=== PATIENT | female | born 1965 | race Caucasian/White ===

== ENCOUNTER 2023-12-01 09:16 | Outpatient (CLI) | payer BC, SELFPAY ==
[2023-12-01 13:13] LABS: Basophils Percent Auto 0.7 % (0.2-1.2); Eosinophils Absolute Auto 0.1 K/mm3 (0-0.3); Eosinophils Percent Auto 1.4 % (0-4.4); Hematocrit 42.9 % (37.0-47.0); Hemoglobin 14.3 g/dL (12.0-15.0); Immature Granulocyte Absolute 0.01 K/mm3 (0.00-0.031); Immature Granulocyte Percent A 0.2 % (0-0.5); Lymphocytes Percent Auto 30.6 % (18.3-44.2); Mean Corpuscular HGB Conc 33.3 g/dl (32-36); Mean Corpuscular Hemoglobin 31.2 pg (26-34); Mean Corpuscular Volume 93.7 fl (80-100); Mean Platelet Volume 10.5 fl (7.4-10.4); Monocytes Absolute Auto 0.3 K/mm3 (0.1-0.6); Monocytes Percent Auto 6.4 % (2.6-8.5); Neutrophils Absolute Auto 2.6 K/mm3 (1.3-6.7); Neutrophils Percent Auto 60.7 % (45.5-73.1); Platelet Count Result 218 k/mm3 (150-375); Red Blood Count 4.58 M/mm3 (4.2-5.4); Red Cell Distribution Width 12.3 % (11.5-14.5); White Blood Count 4.3 K/mm3 (4.5-10.0)
[2023-12-01 13:48] LABS: Alanine Aminotransferase 21 U/L (6-35); Albumin Level 4.5 g/dL (3.5-5.1); Alkaline Phosphatase 84 U/L (38-126); Anion Gap 8 mmol/L (8-16); Aspartate Amino Transferase 33 U/L (14-36); Bilirubin,Total 0.9 mg/dL (0.2-1.3); Blood Urea Nitrogen 18 mg/dL (7-17); Calcium 9.7 mg/dL (8.4-10.2); Carbon Dioxide 28 mmol/L (22-30); Chloride 103 mmol/L (98-107); Cholesterol 197 mg/dL (0-200); Estimated Glomerular Filt Rate > 60; Glucose 89 mg/dL (65-110); HDL Direct 46 mg/dL; Potassium 4.1 mmol/L (3.4-5.0); Sodium 139 mmol/L (137-145); Triglycerides 168 mg/dL (<150)
[2023-12-01 13:58] LABS: LDL Cholesterol Direct 105 mg/dL
[2023-12-04 14:02] LABS: Vitamin D 1,25 (OH)2 Total 39 pg/mL (18-72); Vitamin D2 1,25 (OH)2 <8 pg/mL; Vitamin D3 1,25 (OH)2 39 pg/mL
== END 2023-12-01 09:17 | disposition home or self-care (01) ==
LOC: ANHGOSHLAB 09:17
PROVIDERS: PCP Nurse Practitioner Family; Visit Provider Nurse Practitioner Family
DX: Z00.00 Encounter for general adult medical examination without abnormal findings (principal); E55.9 Vitamin D deficiency, unspecified
CPT/HCPCS: 36415; 80053; 80061; 82652; 84443; 85025

== ENCOUNTER 2024-07-21 08:10 | Emergency (ER) | payer BC, SELFPAY ==
--- NOTE | 2024-07-21 08:13 | ED.EAR ---
HPI - Ear Problem General Chief complaint: Ear Stated complaint: ear ache Time Seen by Provider: 07/21/24 08:36 Source: patient and RN notes reviewed Mode of arrival: ambulatory Limitations: no limitations History of Present Illness HPI Narrative: 59-year-old female presents with concern for right earache. Reports she had cold symptoms about 2 weeks ago which mostly have resolved but she continues to have ear pain and pressure. She reports she also recently flew on an airplane which exacerbated her symptoms. MD Complaint: ear pain Related Data Home Medications Medication Instructions Recorded Confirmed calcium carbonate 600 mg-vitamin 1 tablet PO DAILY 11/28/23 07/21/24 D3 20 mcg (800 unit) tablet Allergies Allergy/AdvReac Type Severity Reaction Status Date / Time No Known Allergies Allergy Verified 07/21/24 08:19 Review of Systems Review of Systems: CONSTITUTIONAL: Denies malaise, chills, sweats, or fever. EYES: Denies visual changes, redness, or discharge. ENT: Reports resolving rhinorrhea, congestion. Denies sinus pain, and sore throat. Reports right ear pain CARDIOVASCULAR: Denies chest pain, palpitations, or edema. RESPIRATORY: Denies cough. Denies dyspnea. GASTROINTESTINAL: Denies abdominal pain, nausea, vomiting, diarrhea SKIN: Denies rash or itching. MUSCULOSKELETAL: Denies myalgia. NEUROLOGIC: Denies headache. All systems reviewed & are unremarkable except as noted in HPI and below PMFSH Surgical History Surgical History History of cardiac radiofrequency ablation (~02/2018) Family History Family History Mother Family history of diabetes mellitus in first degree relative Family history of malignant neoplasm of breast in first degree relative Social History Social History Smoking status: Never smoker Alcohol intake: never Comments At time of signature, agree with nursing past medical, surgical, social and family history. There is no relevant family history pertinent to the presenting complaint Exam Narrative: GENERAL: Well-appearing, well-nourished, and in no acute distress. HEAD: Normocephalic EYES: PERRLA, conjunctivae clear ENT: Nares clear, turbinates edematous, clear discharge. Mucous membranes moist. TM pearly troy with dull light reflex on the right, sharp on the left; no tragal tenderness. Oropharynx not erythematous without lesions. Tonsils not enlarged and without exudate, no drooling, no hoarseness, no trismus, uvula midline. NECK: Supple. No lymphadenopathy CHEST: Clear to auscultation, breath sounds equal. No wheezing, rhonchi, rales, or stridor. No respiratory distress, speaks in full sentences. HEART: Regular rate and rhythm. No murmur heard. SKIN: Warm, dry, no rash. NEURO: Alert and oriented x3. PSYCH: Normal mood and affect Course Course Emergency Course: Patient is aware of diagnosis, understands and agrees to treatment plan. Anticipatory guidance given. Patient agrees to follow-up as directed and is aware of reasons to seek care at the emergency department. Portions of this record may have been created with voice recognition software Level of Care: [facility] Visit Vital Signs Vital signs: Reviewed. Medical Decision Making MDM Narrative Medical decision making narrative: I evaluated this in the [facility] care. History is obtained from patient who is an independent historian and physical exam was performed.? Available medical records were reviewed. ? Exam findings and relevant testing show no acute concerns or changes; patient is non-toxic appearing and is in no distress. Differential diagnosis considered: Mireles virus, strep pharyngitis, allergic rhinitis, upper respiratory tract infection, sinusitis, rhinosinusitis, nasopharyngitis. viral pharyngitis, otitis media, otitis externa, o
[2024-07-21 08:24] VITALS: BP 125/90; PULSE 68; RESP 16; TEMP 35.9; O2SAT 98
== END 2024-07-21 08:57 | disposition home or self-care (01) ==
PROVIDERS: Emergency Provider Nurse Practitioner; PCP Nurse Practitioner Family
DX: H73.891 Other specified disorders of tympanic membrane, right ear (principal)
CPT/HCPCS: 99213; G0463

== ENCOUNTER 2024-12-05 09:24 | Outpatient (CLI) | payer BC, SELFPAY ==
--- OUTSIDE RECORDS SUMMARY | 2024-12-05 09:59 | XMS_ITS | Clinical Summary ---
Author Organization [facility] Address [address] [place] [id number] Care Team Providers Care Food Technologist Name Role Phone Jones Sanchez MD Primary Care Provide r Melissa Cooley MD Unavailable [phone] Allergies No known active allergies Medications calcium carbonate-vitam in D3 1,500 mg (600mg elemental) -800 unit per tablet Take 1 tablet by mouth daily Active PARoxetine (PAXIL) 30 mg tablet TAKE ONE TABLET BY MOUTH EVERY DAY IN THE MORNING 90 tablet 3 11/17/2022 Active atorvastatin (LIPITOR) 40 mg tablet Take 1 tablet (40 mg total) by mouth daily 90 tablet 3 05/09/2023 Active Active Problems Problem Noted Date Diagnosed Date Encounter for screening colonoscopy 01/07/2023 Overview (01/07/2023): Added automatically from request for surgery [id number] History of cardiac radiofrequency ablation 01/23 Depression 08/28/2018 Multiple-type hyperlipidemia 08/05/2016 Overview (02/04/2017): Mixed hyperlipidemia Resolved Problems Problem Noted Date Diagnosed Date Resolved Date Cardiomyopathy 08/05/2016 10/17/2020 Overview (02/04/2017): Cardiomyopathy Assessment & Plan (04/26/2018 12:33 PM CDT): 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 Will recheck an echocardiogram post ablation. Bradycardia 08/05/2016 10/17/2020 Overview (02/04/2017): Bradycardia Ventricular premature beats 06/25/2015 10/17/2020 Overview (02/04/2017): PVC (premature ventricular contraction) Assessment & Plan (04/26/2018 12:33 PM CDT): Post ablation of her PVCs on 03/23/2018. She has been doing well since. She denies any recent palpitations. Her EKG today does not demonstrate any evidence of ventricular ectopy. At this time she states she would prefer to follow up with Dr. Cooley which is reasonable. We can see the patient if she has any further issues or problems. Hypercholesterolemia 06/25/2015 019 Overview (02/04/2017): Hypercholesterolemia Ventricular tachycardia 06/25/201509/30 Overview (02/04/2017): Ventricular tachycardia Immunizations Name Administration Dates Next Due Influenza, Unspecified 07/31/2022,2020,07/31/2020,2017,07/31/2017 Pfizer SARS-CoV-2 Monovalent Vaccination (12+ Yrs) PURPLE 11/03/2020,10/17/2020 Tdap 10/02/2014 ZOSTER Recombinant 07/11/2023,05/09/2023 Surgical History Surgery Date Site/Laterality Comments CARDIAC ELECTROPHYSIOLOGY MA PPING AND ABLATION 10/31/2017 - 10/30/2018 COLONOSCOPY 01/19/2023 1st screening Medical History Medical History Date Comments Arrhythmia Hyperlipidemia PVC's (premature ventricular contractions) Ventricular tachycardia (HCC) Cardiomyopathy (HCC) Bradycardia 08/05/2016 Bradycardia Ventricular premature beats 06/25/2015 PVC (premature ventricular contraction) Family History Medical History Relation Name Comments Other Father Unknown; Breast cancer Mother Cancer, breast ; Diabetes type II Mother Diabetes me llitus type 2; Other Other No family histo ry of Cardiovascular disease; Colon cancer Paternal Grandfather Cancer, colon; Colon cancer Paternal Grandmother Cancer, colon; Endometrial cancer Neg Hx Ovarian cancer Neg Hx Thyroid cancer Neg Hx Relation Name Status Comments Father Mother Other Paternal Grandfather Paternal Grandmother Social History Tobacco Use Types Packs/Day Years Used Date Smoking Tobacco: Never Smokeless Tobacco: Never Tobacco Cessation:Counseling Given: Not Answered Alcohol Use Standard Drinks/Week Comments Yes 0 (1 standard drink = 0.6 oz pur e alcohol) occasionally AUDIT-C Answer Date Recorded Q1: How often do you have a drink containing alc ohol? 2-4 times a month 01/19/2023 Q2: How many drinks containi ng alcohol do you have on a typical day when you are drinking? 1 or 2 01/19/2023 Q3: How often do you have si x or more drinks on one occasion? Never 01/19/2023 PHQ-2 Answer Date Recorded PHQ-2 Total Score (If total score is 3 or more points, staff should administer the PHQ-9) 0 08/10/2022 Personal Safety Answer Date Recorded Have you ever been in or are you currently in a harmful physical or emotional relationship or is someone making you feel afraid or unsafe? 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 Not on file Not on file Not on file Obstetrics History Para Term AB IAB SAB Ectopic Multiple Livin g Live Births 3 2 2 1 1 1 2 Date Outcome GA Total Labor Labor/2nd/3rd Weight Sex Type Anes PTL Alexandrea A1 A5 Name Clin SAB SAB 1990 Term F Vag-S pont 1993 Term M Vag-S pont Living Comments Daughter in 12/2017, (MV A?). Tearful when OB history reviewed 12/2020. Last Filed Vital Signs Vital Sign Reading Time Taken Comments Blood Pressure 122/72 05/09/2023 9:29 AM CDT Pulse 71 05/09/2023 9:29 AM CDT Temperature 36.8 ??C (98.2 ??F) 03/24/2018 4:10 AM CD T Respiratory Rate 18 01/19/2023 9:20 AM CDT Oxygen Saturation 99% 01/19/2023 9:20 AM CDT Inhaled Oxygen Concentration - - Weight 87.1 kg (192 lb 1.6 oz) 05/09/2023 9:29 A M CDT Height 177.8 cm (5' 10 ) 05/09/2023 9:29 AM CDT Body Mass Index 27.56 05/09/2023 9:29 AM CDT Plan of Treatment Health Maintenance Due Date Last Done Comments Hepatitis B Screening 1981 Cervical Cancer Screening 01/26/2022 01/26/2021 Depression Screening 08/10/2023 08/10/2022, 05/07/2022, 10/17/2020, Additional history exists Regular Well Visit/Exam 18-64 05/09/2024 05/09/2023, 05/07/2022, 01/26/2021, Additional history exists Covid-19 Vaccine ( season) 2024 10/14/2021, 11/03/2020, 10/17/2020 Influenza Vaccine (#1) 2024 2, 07/31/2021, 07/31/2020, Additional history exists DTaP/Tdap/Td Vaccine (2 - Td or Tdap) 10/02/2024 10/02/2014 Breast Cancer Screening-Mammogram 11/19/2024 11/19/2022, 01/15/2021, 09/14/2017, Additional history exists Colon Cancer Screening-Colonoscopy 01/20/2028 01/19/2023 Hepatitis C Screening Completed 11/18/2020 Colon Cancer Screening-CT Colonography Discontinued 01/19/2023 Colon Cancer Screening-DNA Stool Discontinued 01/19/2023 Colon Cancer Screening-FIT Discontinued 01/19/2023 Colon Cancer Screening-Sigmoidoscopy Discontinued 01/19/2023 Zoster Vaccine Completed 07/11/2023, 05/09/2023 Pneumococcal vaccine <65 Aged Out No longer eligible based on patient's age to complete this topic Procedures Procedure Name Priority Date/Time Associated Diagnosis Comments COLONOSCOPY 01/19/2023 8:17 AM CDT SCREENING MAMMOGRAM BILATERAL W GERALD Schedule Routine, Read Routine (OP Routine) 11/19/2022 11:43 AM WOUND CARE NURSE Screening mammogram, encounter for PAP WITH REFLEX TO HIGH RISK HPV Routine 01/26/2021 9:47 AM CDT HEPATITIS C ANTIBODY Routine 11/18/2020 9:48 AM WOUND CARE NURSE Need for hepatitis C screening test from Last 3 Months or Most Recently Relevant to Health Maintenance Results * COLONOSCOPY (01/19/2023 8:17 AM CDT) Anatomical Region Laterality Modality Other Narrative Procedure Note Garcia Jorge MD - 01/19/2023 8:17 AM CDT [facility] Patient Name: Eden Felipe Procedure Date: 01/19/2023 8:17 AM Date of : 1965 Admit Type: Outpatient Age: 57 Gender: Female Note Status: Finalized Attending MD: Garcia Jorge M.D. Procedure Date: 01/19/2023 Procedure: Colonoscopy Indications: Screening for colorectal malignant neoplasm, Thisis the patient's first colonoscopy Providers: Garcia Jorge M.D., Niya Trujillo (AnesthesiaStaff), Shira Armstrong RN, Dana Connolly, Potline Monitor Referring MD: Jones Sanchez M.D. Medicines: Monitored Anesthesia Care Complications: No immediate complications. Estimated Blood Loss: Estimated blood loss: none. Procedure: Pre-Anesthesia Assessment: - Airway Examination: normal oropharyngeal airwayand neck mobility. - Respiratory Examination: clear to auscultation. - ASA Grade Assessment: II - A patient with mild systemic disease. - After reviewing the risks and benefits, thepatient was deemed in satisfactory condition to undergo the procedure. - The risks and benefits of the procedure and the sedation options and risks were discussed with the patient. All questions were answered and informed consent was obtained. After I obtained informed consent, the scope was passed under direct vision. Throughout theprocedure, the patient's blood pressure, pulse, and oxygen saturations were monitored continuously. The scopewas passed under direct vision. The Colonoscope was introduced through the anus and advanced to the the cecum, identified by the appendiceal orifice, ileocecal valve and palpation. The colonoscopy was performed with ease. The patient tolerated the procedure well. The quality of the bowelpreparation was good. The quality of the bowel preparation was evaluated using the BBPS (Harmon Bowel Preparation Scale) with scores of: Right Colon = 3, Transverse Colon = 3 and Left Colon = 3 (entire mucosa seenwell with no residual staining, small fragments of stoolor opaque liquid). The total BBPS score equals 9. The quality of the bowel preparation was evaluatedusing the BBPS (Harmon Bowel Preparation Scale) withscores of: Right Colon = 3 (entire mucosa seen well withno residual staining, small fragments of stool oropaque liquid), Transverse Colon = 2 (minor amount of residual staining, small fragments of stool and/or opaque liquid, but mucosa seen well) and Left Colon= 3 (entire mucosa seen well with no residualstaining, small fragments of stool or opaque liquid). Thetotal BBPS score equals 8. The quality of the bowel preparation was good. The bowel preparation usedwas SUPREP via split dose instruction. Bowel prep was administered using a split dose. Findings: The perianal and digital rectal examinations were normal. A 7 mm polyp was found in the transverse colon. The polyp wassessile. The polyp was removed with a cold snare. Resection and retrieval were complete. Estimated blood loss: none. A 5 mm polyp was found in the transverse colon. The polyp wassessile. The polyp was removed with a jumbo cold forceps. Resection andretrieval were complete. Estimated blood loss: none. A few medium-mouthed diverticula were found in the sigmoid colon. The retroflexed view of the distal rectum and anal verge was normaland showed no anal or rectal abnormalities. Impression: - One 7 mm polyp in the transverse colon, removedwith a cold snare. Resected and retrieved. - One 5 mm polyp in the transverse colon, removedwith a jumbo cold forceps. Resected and retrieved. - Diverticulosis in the sigmoid colon. - The distal rectum and anal verge are normal on retroflexion view. Recommendation: - Discharge patient to home (ambulatory). - Await pathology results. - Repeat colonoscopy in 5 years for surveillance. - No aspirin, ibuprofen, naproxen, or other non-steroidal anti-inflammatory drugs for 2 weeks after polyp removal. Procedure Code(s): --- Professional --- 61258, Colonoscopy, flexible; with removal of tumor(s), polyp(s), or other lesion(s) by snare technique 41088, 59, Colonoscopy, flexible; with biopsy,single or multiple Diagnosis Code(s): --- Professional --- Z12.11, Encounter for screening for malignantneoplasm of colon D12.3, Benign neoplasm of transverse colon (hepatic flexure or splenic flexure) K57.30, Diverticulosis of large intestine without perforation or abscess without bleeding CPT copyright 2020 [employer]. All rights reserved. The codes documented in this report are preliminary and upon fermentation operator reviewmay be revised to meet current compliance requirements. Electronically signed by Garcia Jorge MD Garcia Jorge M.D. 01/19/2023 8:48:24 AM Number of Addenda: 0 Note Initiated On: 01/19/2023 8:17 AM us Garcia Jorge MD ENDOSCOPY PROCEDURES Final Resul t * Screening Mammogram Bilateral W Gerald (11/19/2022 11:43 AM WOUND CARE NURSE) Anatomical Region Laterality Modality Breast Bilateral Mammography 11/19/2022 1:10 PM WOUND CARE NURSE Impressions 11/19/2022 1:10 PM WOUND CARE NURSE No evidence of malignancy in either breast. FINAL ASSESSMENT: BI-RADS Category 1: Negative. RECOMMENDATION: Recommend return for annual screening mammogram in 12 months. ?? Electronically signed by: Mary Nolan M.D. Narrative 11/19/2022 1:10 PM WOUND CARE NURSE EXAMINATION: BILATERAL SCREENING MAMMOGRAM COMPARISON: Multiple prior studies, most recently 01/15/2021 and dating back to 09/14/2013. TECHNIQUE: Full-field 2D and digital breast tomosynthesis (DBT) images were obtained. CAD was utilized. BREAST PARENCHYMAL COMPOSITION: ??The breasts are heterogenously dense, which may obscure small masses. FINDINGS: There is no suspicious mass, calcification, or distortion in either breast. There has been no significant interval change from the prior study. us Self Screening Mammogram IMG MAMMO PROCEDURES Fi nal Result * Pap with reflex to High Risk HPV (01/26/2021 9:47 AM CDT) Pap test 01/26/2021 9:47 AM CDT 01/26/2021 9:47 AM CDT Narrative 01/28/2021 12:57 PM CDT [facility] Department of Pathology [address] [place] [id number] Final Report with Addendum Patient Name: ??EDEN FELIPE Address: ??[address] [place] [address] , ?? [place], [place] [address] Gender: ??F : ??1965 (Age: 55) Service: ??Laboratory Location: ??Lab Hospital #: ??[id number] Patient Type: ?? Ref Lab Taken: ??01/26/2021 Received: ??01/26/2021 Accessioned:: ??01/27/2021 Reported: ??01/28/2021 Physician(s): Jyothi Packer Diagnosis: Source of Specimen: ? Imaged Thinprep Pap Test plus HPV - Volcanologist Cytologic Material Specimen Adequacy: ?- Specimen satisfactory for interpretation; indeterminate endocervical component due to marked ?atrophy General Category: ?- Negative for intraepithelial lesion or malignancy ?? PRECIOUS Parr(ASCP) Report Electronically Reviewed and Signed Out By ??PRECIOUS Parr(ASCP) ??01/28/2021 12:57:42 ??Addenda: HPV Test Interpretation NEGATIVE for types 16, 18, 31, 33, 35, 39, 45, 51, 52, 56, 58, 59, 66 and 68. Test performed utilizing Gen-Booktrope Aptima assay. ?? PRECIOUS Medina(ASCP) ??Report Electronically Reviewed and Signed Out By ??PRECIOUS Parr(ASCP) ??01/27/2021 14:47:07 ? Specimen(s) Received: A: Imaged Thinprep Pap Test plus HPV - Volcanologist Cytologic Material Clinical History: Last Menstrual Period: 2013 Menstrual History: Post-menopausal The Pap test is a screening test used to aid in the detection of cervical cancer and its precursors. ??It should not be the sole means by which malignant and premalignant lesions are diagnosed. ??Both false negative and false positive results may occur. ?? It also has poor sensitivity for the detection of endometrial lesions and should not be used to evaluate suspected endometrial abnormalities. ??For these reasons it is most important to obtain Pap tests at regular intervals. The performance characteristics of some immunohistochemical stains, fluorescence in-situ hybridization tests and immunophenotyping by flow cytometry cited in this report (if any) were determined by the Surgical Pathology Department at [facility] as part of an ongoing quality nurse program and in compliance with federally mandated regulations drawn from the Clinical Laboratory Improvement Act of 1988 (CLIA '88). ??Some of these tests rely on the use of analyte specific reagents and are subject to specific labeling requirements by the US Food and Drug Administration. ??Such diagnostic tests may only be performed in a facility that is certified by the Department of Health and Human Services as a high complexity laboratory under CLIA '88. The FDA has determined that such clearance or approval is not necessary. ??This test is used for clinical purposes. ??It should not be regarded as investigational or for research. ??Nevertheless, federal rules concerning the medical use of analyte specific reagents require that the following disclaimer be attached to the report: This test was developed and its performance characteristics determined by the Surgical Pathology Department [facility]. ??It has not been cleared or approved by the U. S. Food and Drug Administration. Jyothi Packer MD LAB CYTOLOGY ORDERABLES Final Result * Hepatitis C antibody (11/18/2020 9:48 AM WOUND CARE NURSE) Hep C Ab Nonreactive Nonreactive [facility] Comment: Interpretive Data Nonreactive: Antibodies to HCV not detected. Does NOT exclude the possibility of recent exposure to HCV. Equivocal: Equivocal for HCV antibodies. Supplemental molecular testing will be automatically performed to determine infection status in accordance with current CDC screening recommendations. ?? Reactive: Positive for HCV antibodies. ??This may represent current or past HCV infection. Supplemental molecular testing will be automatically performed to determine ??current infection status in accordance with current CDC screening recommendations. Interpretive data was last revised on 2020. Blood specimen (specimen) 11/18/2020 9:48 AM WOUND CARE NURSE 11/18/2020 9:48 AM WOUND CARE NURSE Jones Sanchez MD LAB MICROBIOLOGY - NERAL ORDERABLES Final Result [facility] [id number] Department [place] [address] from Last 3 Months or Most Recently Relevant to Health Maintenance Insurance [facility] [place] [address] Care Teams Food Technologist Relationship Specialty Start Date End Date Jones Sanchez MD PCP - General Family Medicine 04/27/17 Melissa Cooley MD Consulting Physician Cardiology 04/25/19
--- OUTSIDE RECORDS SUMMARY | 2024-12-05 09:59 | XMS_ITS | Encounter Summary ---
Author Organization [facility] Address [address] [place] [address] Care Team Providers Care Solderer Assembly Repair Name Role Phone Chanel Serra MD Primary Care Provider Jones Sanchez MD Primary Care Provide r Melissa Cooley MD Unavailable [phone] Encounter Details Date Type Department Care Team (Late st Contact Info) Description 02/02/2017 Orders Only [facility] ProviderJena MD [address] [place], [place] [id number] Social History Tobacco Use Types Packs/Day Years Used Date Smoking Tobacco: Never Alcohol Use Standard Drinks/Week Comments Yes 0 (1 standard drink = 0.6 oz pur e alcohol) Comments Unknown Sex and Gender Information Value Date Recorded Sex Assigned at Not on file Legal Sex Female 6:48 PM MILLINERY BLOCKER Gender Identity Not on file Sexual Orientation Not on file documented as of this encounter Plan of Treatment Not on file documented as of this encounter Procedures Procedure Name Priority Date/Time Associated Diagnosis Comments CARDIOLOGY REPORT 02/02/2017 CARDIOLOGY REPORT 02/02/2017 documented in this encounter Results * CARDIOLOGY REPORT (02/02/2017) Anatomical Region Laterality Modality Other Narrative 02/02/2017 Ordered by an unspecified provider. Historical Provider [facility] TOMLINSON Final Result * CARDIOLOGY REPORT (02/02/2017) Anatomical Region Laterality Modality Other Narrative 02/02/2017 Ordered by an unspecified provider. us Historical Provider [facility] LID[facility] TOMLINSON Final Result documented in this encounter Visit Diagnoses Not on filedocumented in this encounter Additional Health Concerns Infection Onset Date Last Indicated Resolved Time Exposure, COVID-19 Comment:Added automatically based on COVID19 lab answers indicating exposure risk 11/10/2021 11/10/2021 11/10/2021 2:[address] COVID: Suspected 11/10/2021 11/10/2021 11/10/2021 2:00 PM MILLINERY BLOCKER COVID19 11/10/2021 11/10/2021 11/20/2021 3:05 AM MILLINERY BLOCKER COVID: Recovered Comment:Added based on recent COVID infection. 11/20/2021 02/04/2022 03/20/2022 3:05 AM C DT documented as of this encounter Care Teams Solderer Assembly Repair Relationship Specialty [place] [id number] [place] [address] PCP - General 01/28/17 04/26/17 [place] [id number] [place] [address] PCP - General Family Medicine 04/27/17 [place] [id number] [place] [address] [place] [phone] Consulting Physician Cardiology 04/25/19 documented as of this encounter
--- OUTSIDE RECORDS SUMMARY | 2024-12-05 09:59 | XMS_ITS | Referral Summary ---
Author Organization [facility] Address [address] [place] [id number] Care Team Providers Care Patient Service Associate Name Role Phone Jones Sanchez MD Primary Care Provide r Melissa Cooley MD Unavailable [phone] Allergies No known active allergies Medications calcium [...] (01/07/2023): Added automatically from request for surgery [id number] History of cardiac radiofrequency ablation 01/23 Depression [...] PURPLE 11/03/2020,10/17/2020 Tdap 10/02/2014 ZOSTER Recombinant 07/11/2023,05/09/2023 Social History Tobacco Use Types Packs/Day Years [...] on file Legal Sex Female 6:48 PM CAP AND HAT PRODUCTION SUPERVISOR Gender Identity Not on file Sexual Orientation Not on file 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 Not on file Not on file Not on file Last Filed Vital Signs Vital Sign Reading [...] 05/09/2023 9:29 AM CDT Plan of Treatment Not on file Procedures Procedure Name Priority Date/Time Associated Diagnosis Comments COLONOSCOPY 01/19/2023 8:17 AM CDT SCREENING MAMMOGRAM BILATERAL W GERALD Schedule Routine, Read Routine (OP Routine) 11/19/2022 11:43 AM CAP AND HAT PRODUCTION SUPERVISOR Screening mammogram, encounter for PAP WITH REFLEX TO HIGH RISK HPV Routine 01/26/2021 9:47 AM CDT HEPATITIS C ANTIBODY Routine 11/18/2020 9:48 AM CAP AND HAT PRODUCTION SUPERVISOR Need for hepatitis C screening test from Last 3 Months or Most Recently Relevant to Health Maintenance Results * COLONOSCOPY (01/19/2023 8:17 AM CDT) Anatomical Region Laterality Modality Other Narrative Procedure Note Garcia Jorge MD - 01/19/2023 8:17 AM CDT [facility] Endoscopy Lab Patient Name: Eden Felipe Procedure Date: 01/19/2023 8:17 AM Date of : 1965 Admit Type: Outpatient Age: 57 Gender: Female Note Status: Finalized Attending MD: Garcia Jorge M.D. Procedure Date: 01/19/2023 Procedure: Colonoscopy Indications: Screening for colorectal malignant neoplasm, Thisis the patient's first colonoscopy Providers: Garcia Jorge M.D., Niya Trujillo (AnesthesiaStaff), Shira Armstrong, DENNIS, Dana Connolly, Clinical Product Manager Referring MD: Jones Sanchez M.D. Medicines: Monitored [...] bowel preparation was evaluated using the BBPS ([place] Bowel Preparation Scale) with scores of: Right Colon = 3, Transverse Colon = 3 and Left Colon = 3 (entire mucosa seenwell with no residual staining, small fragments of stoolor opaque liquid). The total BBPS score equals 9. The quality of the bowel preparation was evaluatedusing the BBPS ([place] Bowel Preparation Scale) withscores of: Right Colon [...] polyp removal. Procedure Code(s): --- Professional --- 29380, Colonoscopy, flexible; with removal of tumor(s), polyp(s), or other lesion(s) by snare technique 90745, 59, Colonoscopy, flexible; with biopsy,single or multiple Diagnosis Code(s): --- Professional --- Z12.11, Encounter for screening for malignantneoplasm of colon D12.3, Benign neoplasm of transverse colon (hepatic flexure or splenic flexure) K57.30, Diverticulosis of large intestine without perforation or abscess without bleeding CPT copyright 2020 [place] [employer]. All rights reserved. The codes documented in this report are preliminary and upon hospital ward clerk reviewmay be revised to meet current compliance requirements. Electronically signed by Garcia Jorge MD Garcia Jorge M.D. 01/19/2023 8:48:24 AM Number of Addenda: 0 Note Initiated On: 01/19/2023 8:17 AM us Garcia Jorge MD ENDOSCOPY PROCEDURES Final Resul t * Screening Mammogram Bilateral W Gerald (11/19/2022 11:43 AM CAP AND HAT PRODUCTION SUPERVISOR) Anatomical Region Laterality Modality Breast Bilateral Mammography 11/19/2022 1:10 PM CAP AND HAT PRODUCTION SUPERVISOR Impressions 11/19/2022 1:10 PM CAP AND HAT PRODUCTION SUPERVISOR No evidence of malignancy in either breast. FINAL ASSESSMENT: BI-RADS Category 1: Negative. RECOMMENDATION: Recommend return for annual screening mammogram in 12 months. ?? Electronically signed by: Mary Nolan M.D. Narrative 11/19/2022 1:10 PM CAP AND HAT PRODUCTION SUPERVISOR EXAMINATION: BILATERAL SCREENING MAMMOGRAM COMPARISON: Multiple prior [...] 12:57 PM CDT [facility] Department of Pathology [address] [place] [id number] Final Report with Addendum Patient Name: ??EDEN FELIPE Address: ??[address] [place] [address] , ?? [place], [place] ?? Gender: ??F : ??1965 (Age: 55) Service: ??Laboratory Location: ??Lab Hospital #: ??[id number] Patient Type: ?? Ref Lab Taken: ??01/26/2021 Received: ??01/26/2021 Accessioned:: ??01/27/2021 Reported: ??01/28/2021 Physician(s): Jyothi Packer Diagnosis: Source of Specimen: ? Imaged Thinprep Pap Test plus HPV - Hospital Pharmacist Cytologic Material Specimen Adequacy: ?- Specimen satisfactory [...] 59, 66 and 68. Test performed utilizing Gen-Probe Aptima assay. ?? PRECIOUS Medina(ASCP) ??Report Electronically Reviewed and Signed Out By ??PRECIOUS Parr(ASCP) ??01/27/2021 14:47:07 ? Specimen(s) Received: A: Imaged Thinprep Pap Test plus HPV - Hospital Pharmacist Cytologic Material Clinical History: Last Menstrual Period: [...] determined by the Surgical Pathology Department at [facility] as part of an ongoing quality measurement specialist program and in compliance with federally mandated [...] characteristics determined by the Surgical Pathology Department [facility]. ??It has not been cleared or approved by the U. S. Food and Drug Administration. Jyothi Packer MD LAB CYTOLOGY ORDERABLES Final Result * Hepatitis C antibody (11/18/2020 9:48 AM CAP AND HAT PRODUCTION SUPERVISOR) Hep C Ab Nonreactive Nonreactive [facility] [...] 2020. Blood specimen (specimen) 11/18/2020 9:48 AM CAP AND HAT PRODUCTION SUPERVISOR 11/18/2020 9:48 AM CAP AND HAT PRODUCTION SUPERVISOR Jones Sanchez MD LAB MICROBIOLOGY - NERAL ORDERABLES Final Result [facility] [id number] Department [place] [address] from Last 3 Months or Most Recently Relevant to [place] [address] [facility] [employer] Address: [facility] [address] [place] [address] [employer] [facility] [employer] Address: [facility] [address] [place] [address] Care Teams Patient Service Associate Relationship Specialty Start Date End Date Jones Sanchez MD PCP - General Family Medicine 04/27/17 Melissa Cooley MD Consulting Physician Cardiology 04/25/19
[2024-12-05 14:07] LABS: Basophils Percent Auto 0.5 % (0.2-1.2); Eosinophils Absolute Auto 0.1 K/mm3 (0-0.3); Eosinophils Percent Auto 1.6 % (0-4.4); Hematocrit 42.2 % (37.0-47.0); Hemoglobin 14.1 g/dL (12.0-15.0); Immature Granulocyte Absolute 0.02 K/mm3 (0.00-0.031); Immature Granulocyte Percent A 0.5 % (0-0.5); Lymphocytes Absolute Auto 1.13 K/mm3 (0.9-3.2); Lymphocytes Percent Auto 30.7 % (18.3-44.2); Mean Corpuscular HGB Conc 33.4 g/dl (32-36); Mean Corpuscular Hemoglobin 30.9 pg (26-34); Mean Corpuscular Volume 92.5 fl (80-100); Monocytes Absolute Auto 0.3 K/mm3 (0.1-0.6); Monocytes Percent Auto 7.3 % (2.6-8.5); Neutrophils Absolute Auto 2.2 K/mm3 (1.3-6.7); Neutrophils Percent Auto 59.4 % (45.5-73.1); Platelet Count Result 194 k/mm3 (150-375); Red Blood Count 4.56 M/mm3 (4.2-5.4); Red Cell Distribution Width 12.1 % (11.5-14.5); White Blood Count 3.7 K/mm3 (4.5-10.0)
[2024-12-05 16:37] LABS: Alanine Aminotransferase 21 U/L (6-35); Albumin Level 4.5 g/dL (3.5-5.1); Alkaline Phosphatase 88 U/L (38-126); Anion Gap 11 mmol/L (4-12); Aspartate Amino Transferase 37 U/L (14-36); Bilirubin,Total 0.9 mg/dL (0.2-1.3); Blood Urea Nitrogen 16 mg/dL (7-17); Calcium 9.9 mg/dL (8.4-10.2); Carbon Dioxide 26 mmol/L (22-30); Chloride 103 mmol/L (98-107); Cholesterol 204 mg/dL (0-200); Estimated Glomerular Filt Rate > 60; Glucose 97 mg/dL (65-110); HDL Direct 41 mg/dL; Potassium 4.9 mmol/L (3.4-5.0); Sodium 140 mmol/L (137-145); Triglycerides 137 mg/dL (<150)
[2024-12-05 16:42] LABS: Vitamin D 25 Hydroxy 21.2 ng/mL
[2024-12-05 16:48] LABS: LDL Cholesterol Direct 117 mg/dL
[2024-12-05 16:56] LABS: Thyroid Stimulating Hormone Reflex 0.782 uIU/mL (0.465-4.68)
== END 2024-12-05 09:25 | disposition home or self-care (01) ==
LOC: ANHGOSHLAB 09:25
PROVIDERS: PCP Nurse Practitioner Family; Visit Provider Nurse Practitioner Family
DX: Z00.00 Encounter for general adult medical examination without abnormal findings (principal); Z13.29 Encounter for screening for other suspected endocrine disorder; I10 Essential (primary) hypertension; E55.9 Vitamin D deficiency, unspecified; E78.5 Hyperlipidemia, unspecified
CPT/HCPCS: 36415; 80053; 80061; 82306; 84443; 85025

== ENCOUNTER 2025-10-18 10:30 | Outpatient (CLI) | payer BC, SELFPAY ==
--- OUTSIDE RECORDS SUMMARY | 2025-10-18 11:02 | XMS_ITS | Encounter Summary ---
Author Organization [facility] Address [address] [place] [address] Care Team Providers Care Stick Roller Name Role Phone Chanel Serra MD Primary Care Provider Jones Owusu MD Primary Care Provide r Melissa Cooley MD Unavailable [phone] Jennifer Whyte PROPELLER MECHANIC Primary Care Provider [phone] Niya Morejon PROPELLER MECHANIC Primary Care Provider [phone] Encounter Details Date Type Department Care Team (Late st Contact Info) Description 02/02/2017 Orders Only [facility] ProviderJena MD [address] [place] [address] Social History Tobacco Use Types Packs/Day Years Used Date Smoking Tobacco: Never Alcohol Use Standard Drinks/Week Comments Yes 0 (1 standard drink = 0.6 oz pur e alcohol) Comments Unknown Sex and Gender Information Value Date Recorded Sex Assigned at Not on file Legal Sex Female 6:48 PM LIFE CLAIMS EXAMINER Gender Identity Not on file Sexual Orientation Not on file documented as of this encounter Plan of Treatment Not on file documented as of this encounter Procedures Procedure Name Priority Date/Time Associated Diagnosis Comments CARDIOLOGY REPORT 02/02/2017 CARDIOLOGY REPORT 02/02/2017 documented in this encounter Results * CARDIOLOGY REPORT (02/02/2017) Anatomical Region Laterality Modality Other Narrative 02/02/2017 Ordered by an unspecified provider. Historical Provider MD CV CARDIAC SERVICES PROCE BUSHRA Final Result * CARDIOLOGY REPORT (02/02/2017) Anatomical Region Laterality Modality Other Narrative 02/02/2017 Ordered by an unspecified provider. Historical Provider CV CARDIAC SERVICES PROCE DURMONSERRAT Final Result documented in this encounter Visit Diagnoses Not on filedocumented in this encounter Additional Health Concerns Infection Onset Date Last Indicated Resolved Time Exposure, COVID-19 Comment:Added automatically based on COVID19 lab answers indicating exposure risk 11/10/2021 11/10/2021 11/10/2021 2:[address] COVID: Suspected 11/10/2021 11/10/2021 11/10/2021 2:00 PM LIFE CLAIMS EXAMINER COVID19 11/10/2021 11/10/2021 11/20/2021 3:05 AM LIFE CLAIMS EXAMINER COVID: Recovered Comment:Added based on recent COVID infection. 11/20/2021 02/04/2022 03/20/2022 3:05 AM C DT documented as of this encounter Care Teams Stick Roller Relationship Specialty Start Date End Date Chanel Serra MD PCP - General 01/28/17 04/26/17 Jones Sanchez MD PCP - General Family Medicine 04/27/17 02/13/25 Jennifer Whyte NP [address] [place] [address] PCP - General Family Medicine 02/14/25 03/14/25 Niya Morejon NP [address] [place] [address] PCP - General Nurse Practitioner 03/15/25 Melissa Cooley MD Consulting Physician Cardiology 04/25/19 documented as of this encounter
--- OUTSIDE RECORDS SUMMARY | 2025-10-18 11:02 | XMS_ITS | Clinical Summary ---
Author Organization [facility] Address [address] [place] [id number] Care Team Providers Care Track Manager Name Role Phone Melissa Cooley MD Unavailable [phone] Niya Morejon NP Primary Care Provider [phone] Allergies No known active allergies Medications calcium [...] (01/07/2023): Added automatically from request for surgery [id number] History of cardiac radiofrequency ablation 01/23 Depression [...] tachycardia 06/25/201509/30 Overview (02/04/2017): Ventricular tachycardia Immunizations Immunization Administration Dates Next Due Influenza, Unspecified 07/31/2022,2020,07/31/2020,2017,07/31/2017 Pfizer SARS-CoV-2 Monovalent Vaccination (12+ Yrs) PURPLE 11/03/2020,10/17/2020 Tdap 10/02/2014 ZOSTER Recombinant 07/11/2023,05/09/2023 Surgical History Surgery Date Site/Laterality Comments CARDIAC ELECTROPHYSIOLOGY MA PPING AND ABLATION 10/31/2017 - 10/30/2018 COLONOSCOPY 01/19/2023 1st screening Medical History Medical History Date Comments Arrhythmia Hyperlipidemia PVC's (premature ventricular contractions) Ventricular tachycardia (HCC) Cardiomyopathy Bradycardia 08/05/2016 Bradycardia Ventricular premature beats 06/25/2015 [...] on file Legal Sex Female 6:48 PM OUTREACH COUNSELOR Gender Identity Not on file Sexual Orientation Not on file 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 Not on file [...] 71 05/09/2023 9:29 AM CDT Temperature 36.8 C (98.2 F) 03/24/2018 4:10 AM CDT Respiratory Rate 18 01/19/2023 9:20 AM CDT Oxygen Saturation 99% 01/19/2023 9:20 AM CDT Inhaled Oxygen Concentration - - Weight 87.1 kg (192 lb 1.6 oz) 05/09/2023 9:29 A M CDT Height 177.8 cm (5' 10) 05/09/2023 9:29 AM CDT Body Mass Index 27.56 05/09/2023 9:29 AM CDT Plan of Treatment Health Maintenance Due Date Last Done Comments Hepatitis B Screening 1981 Cervical Cancer Screening 01/26/2022 01/26/2021 Depression Screening 08/10/2023 08/10/2022, 05/07/2022, 10/17/2020, Additional history exists Regular Well Visit/Exam 18-64 05/09/2024 05/09/2023, 05/07/2022, 01/26/2021, Additional history exists DTaP/Tdap/Td Vaccine (2 - Td or Tdap) 10/02/2024 10/02/2014 Covid-19 Vaccine ( season) 2025 10/14/2021, 11/03/2020, 10/17/2020 Influenza Vaccine (#1) 2025 , 07/31/2022, 07/31/2021, Additional history exists Breast Cancer Screening-Mammogram 03/12/2027 03/12/2025, 11/19/2022, 01/15/2021, Additional history exists Colon Cancer Screening-Colonoscopy 01/20/2028 [...] Procedure Name Priority Date/Time Associated Diagnosis Comments SCREENING MAMMOGRAM BILATERAL W GERALD Schedule Routine, Read Routine (OP Routine) 03/12/2025 11:41 AM CDT Screening mammogram, encounter for COLONOSCOPY 01/19/2023 8:17 AM CDT PAP WITH REFLEX TO HIGH RISK HPV Routine 01/26/2021 9:47 AM CDT HEPATITIS C ANTIBODY Routine 11/18/2020 9:48 AM OUTREACH COUNSELOR Need for hepatitis C screening test from Last 3 Months or Most Recently Relevant to Health Maintenance Results * Screening Mammogram Bilateral W Gerald (03/12/2025 11:41 AM CDT) Anatomical Region Laterality Modality Breast Bilateral Mammography Impressions 03/12/2025 3:56 PM CDT Left 1) Asymmetry: Left breast asymmetry in the central region in the posterior depth. Assessment: 0 - Incomplete. Diagnostic mammogram with possible ultrasound is recommended. Right No evidence of malignancy. OVERALL BI-RADS FINAL ASSESSMENT: 0 - Incomplete: Needs Additional Imaging Evaluation RECOMMENDATIONS: Recommend bilateral diagnostic mammogram with possible ultrasound. Narrative 03/12/2025 3:56 PM CDT EXAMINATION: Screening Mammogram Bilateral W Gerald: 03/12/2025 COMPARISON: Relevant prior studies available at the time of interpretation were reviewed. TECHNIQUE: Mammography was performed with 2D and digital breast tomosynthesis (DBT) images. CAD was utilized. BREAST PARENCHYMAL COMPOSITION: The breasts are heterogeneously dense, which may obscure small masses. FINDINGS: Left 1) Asymmetry: There is an asymmetry seen in the central region of the left breast in the posterior depth on the CC view. This finding needs additional imaging evaluation. Right There is no suspicious mass, calcification, or architectural distortion. us Self Screening Mammogram IMG MAMMO PROCEDURES Fi nal Result * COLONOSCOPY (01/19/2023 8:17 AM CDT) Anatomical Region Laterality Modality Other Narrative Procedure Note Garcia Jorge MD - 01/19/2023 8:17 AM CDT [facility] Endoscopy Lab Patient Name: Eden Felipe Procedure Date: 01/19/2023 8:17 AM Date of : 1965 Admit Type: Outpatient Age: 57 Gender: Female Note Status: Finalized Attending MD: Garcia Jorge M.D. Procedure Date: 01/19/2023 Procedure: Colonoscopy Indications: Screening for colorectal malignant neoplasm, Thisis the patient's first colonoscopy Providers: Garcia Jorge M.D., Niya Trujillo (AnesthesiaStaff), Shira Armstrong RN, Dana Connolly, Power Generation Engineer Referring MD: Jones Sanchez M.D. Medicines: Monitored [...] bowel preparation was evaluated using the BBPS ([place] Bowel Preparation Scale) with scores of: Right Colon = 3, Transverse Colon = 3 and Left Colon = 3 (entire mucosa seenwell with no residual staining, small fragments of stoolor opaque liquid). The total BBPS score equals 9. The quality of the bowel preparation was evaluatedusing the BBPS ([place] Bowel Preparation Scale) withscores of: Right Colon [...] polyp removal. Procedure Code(s): --- Professional --- 74234, Colonoscopy, flexible; with removal of tumor(s), polyp(s), or other lesion(s) by snare technique 85950, 59, Colonoscopy, flexible; with biopsy,single or multiple Diagnosis Code(s): --- Professional --- Z12.11, Encounter for screening for malignantneoplasm of colon D12.3, Benign neoplasm of transverse colon (hepatic flexure or splenic flexure) K57.30, Diverticulosis of large intestine without perforation or abscess without bleeding CPT copyright 2020 [place] [employer]. All rights reserved. The codes documented in this report are preliminary and upon statement distribution clerk reviewmay be revised to meet current compliance requirements. Electronically signed by Garcia Jorge MD Garcia Jorge M.D. 01/19/2023 8:48:24 AM Number of Addenda: 0 Note Initiated On: 01/19/2023 8:17 AM Garcia Jorge MD ENDOSCOPY PROCEDURES Final Resul t * Pap with reflex to High Risk HPV (01/26/2021 9:47 AM CDT) Pap test 01/26/2021 9:47 AM CDT 01/26/2021 9:47 AM CDT Narrative 01/28/2021 12:57 PM CDT [facility] Department of Pathology [address] [place] [address] Final Report with Addendum Patient Name: EDEN FELIPE Address: [address] [place] [address] Gender: F : 1965 (Age: 55) Service: Laboratory Location: Lab [facility] #: [id number] Patient Type: Ref Lab Taken: 01/26/2021 Received: 01/26/2021 Accessioned:: 01/27/2021 Reported: 01/28/2021 Physician(s): Jyothi Packer Diagnosis: Source of Specimen: Imaged Thinprep Pap Test plus HPV - Die Welder Cytologic Material Specimen Adequacy: - Specimen satisfactory for interpretation; indeterminate endocervical component due to marked atrophy General Category: - Negative for intraepithelial lesion or malignancy PRECIOUS Parr(ASCP) Report Electronically Reviewed and Signed Out By PRECIOUS Parr(ASCP) 01/28/2021 12:57:42 Addenda: HPV Test Interpretation NEGATIVE for types 16, 18, 31, 33, 35, 39, 45, 51, 52, 56, 58, 59, 66 and 68. Test performed utilizing Gen-Probe Aptima assay. PRECIOUS Medina(ASCP) Report Electronically Reviewed and Signed Out By PRECIOUS Parr(ASCP) 01/27/2021 14:47:07 Specimen(s) Received: A: Imaged Thinprep Pap Test plus HPV - Die Welder Cytologic Material Clinical History: Last Menstrual Period: 2013 Menstrual History: Post-menopausal The Pap test is a screening test used to aid in the detection of cervical cancer and its precursors. It should not be the sole means by which malignant and premalignant lesions are diagnosed. Both false negative and false positive results may occur. It also has poor sensitivity for the detection of endometrial lesions and should not be used to evaluate suspected endometrial abnormalities. For these reasons it is most important to obtain Pap tests at regular intervals. The performance characteristics of some immunohistochemical stains, fluorescence in-situ hybridization tests and immunophenotyping by flow cytometry cited in this report (if any) were determined by the Surgical Pathology Department at [facility] as part of an ongoing software quality assurance analyst program and in compliance with federally mandated regulations drawn from the Clinical Laboratory Improvement Act of 1988 (CLIA '88). Some of these tests rely on the use of analyte specific reagents and are subject to specific labeling requirements by the US Food and Drug Administration. Such diagnostic tests may only be performed in a facility that is certified by the Department of Health and Human Services as a high complexity laboratory under CLIA '88. The FDA has determined that such clearance or approval is not necessary. This test is used for clinical purposes. It should not be regarded as investigational or for research. Nevertheless, federal rules concerning the medical use of analyte specific reagents require that the following disclaimer be attached to the report: This test was developed and its performance characteristics determined by the Surgical Pathology Department [facility]. It has not been cleared or approved by the U. S. Food and Drug Administration. Jyothi Packer MD LAB CYTOLOGY ORDERABLES Final Result * Hepatitis C antibody (11/18/2020 9:48 AM OUTREACH COUNSELOR) Hep C Ab Nonreactive Nonreactive [facility] Comment: Interpretive Data Nonreactive: Antibodies to HCV not detected. Does NOT exclude the possibility of recent exposure to HCV. Equivocal: Equivocal for HCV antibodies. Supplemental molecular testing will be automatically performed to determine infection status in accordance with current CDC screening recommendations. Reactive: Positive for HCV antibodies. This may represent current or past HCV infection. Supplemental molecular testing will be automatically performed to determine current infection status in accordance with current CDC screening recommendations. Interpretive data was last revised on 2020. Blood specimen (specimen) 11/18/2020 9:48 AM OUTREACH COUNSELOR 11/18/2020 9:48 AM OUTREACH COUNSELOR Jones Sanchez MD LAB MICROBIOLOGY - NERAL ORDERABLES Final Result [facility] [id number] Department [place] [address] from Last 3 Months or Most Recently Relevant to Health Maintenance Insurance [employer] Address: [facility] [address] [place] [address] [employer] [place] [address] [employer] [place] Care Teams Track Manager Relationship Specialty Start Date End Date Niya Morejon NP [address] [place] [address] PCP - General Nurse Practitioner 03/15/25 Melissa Cooley MD Consulting Physician Cardiology 04/25/19
[2025-10-18 13:53] LABS: Add Urine Microscopic? YES; Appearance Urine Cloudy (Clear); Glucose Urine UA Negative (Negative); Leukocyte Esterase Ur 3+ LEU/UL (Negative); Need Manual Microscopic Reviewed; Nitrate Urine Negative (Negative); Non Pathogenic Casts 0-2; Specific Grav Ur 1.021 (1.001-1.035)
== END 2025-10-18 10:31 | disposition home or self-care (01) ==
LOC: ANHGOSHLAB 10:31
PROVIDERS: PCP Nurse Practitioner Family; Visit Provider Nurse Practitioner Family
DX: R39.9 Unspecified symptoms and signs involving the genitourinary system (principal)
CPT/HCPCS: 81001; 87077; 87086; 87186